=== PATIENT | male | born 1970 | race Caucasian/White ===

== ENCOUNTER → 2018-12-25 | Outpatient (CLI) | payer OTHER | LOC: M.ULTRA 08:25 | DX: N43.3 Hydrocele, unspecified (principal); N44.2 Benign cyst of testis; N50.3 Cyst of epididymis ==

== ENCOUNTER → 2019-07-10 | Outpatient (CLI) | payer BC, OTHER | LOC: M.ULTRA 05-15 09:00 | DX: N50.3 Cyst of epididymis (principal); N44.2 Benign cyst of testis; M25.842 Other specified joint disorders, left hand; D21.12 Benign neoplasm of connective and other soft tissue of left upper limb, including shoulder ==